=== PATIENT | male | born 1940 | race Caucasian/White ===

== ENCOUNTER → 2016-12-07 | Outpatient (CLI) | payer MEDICARE ==
[~2016-12-07] MED LIST: AMLO2.5T2 PO; APIX5TAB PO; ASPI-496 PO; B COMPLEX PO; CHOLECALCIFEROL PO; CYAN100028 PO; DIGO125T PO; FOLI0.4T2 PO; FOLIC ACID PO; FURO-92 PO; GUAI1TBM PO; LISI1TAB7 PO; MELA1TAB6 PO; METO50TA4 PO; MULT-658 PO; OM-31CAP4 PO; POTA10PI2 PO; POTASSIUM PO; SPIR25TA3 PO; TRAM50TA2 PO
== END | disposition home or self-care (01) ==
LOC: ROC 13:06
PROVIDERS: ATTEND Radiology Radiation Oncology
DX: C79.31 Secondary malignant neoplasm of brain (principal); C34.90 Malignant neoplasm of unspecified part of unspecified bronchus or lung
CPT/HCPCS: G0463

== ENCOUNTER → 2016-12-15 | Outpatient (CLI) | payer MEDICARE | END | disposition home or self-care (01) | LOC: PETCFH 08:20 | PROVIDERS: ATTEND Specialist | DX: C34.11 Malignant neoplasm of upper lobe, right bronchus or lung (principal); C79.51 Secondary malignant neoplasm of bone; R91.1 Solitary pulmonary nodule; J90 Pleural effusion, not elsewhere classified; K40.90 Unilateral inguinal hernia, without obstruction or gangrene, not specified as recurrent | CPT/HCPCS: 78815; A9552 ==

== ENCOUNTER → 2016-12-30 | Outpatient (CLI) | payer MEDICARE ==
[~2016-12-30] MED LIST changes: +GADOBUTROL 10 MMOL/10 ML PFS ONE
== END | disposition home or self-care (01) ==
LOC: CFH 07:33
PROVIDERS: ATTEND Radiology Radiation Oncology
DX: C34.11 Malignant neoplasm of upper lobe, right bronchus or lung (principal); C79.31 Secondary malignant neoplasm of brain; M51.24 Other intervertebral disc displacement, thoracic region; I10 Essential (primary) hypertension
CPT/HCPCS: 72157; 82565; A9585

== ENCOUNTER → 2017-04-06 | Outpatient (CLI) | payer MEDICARE ==
[~2017-04-06] MED LIST changes: -GADOBUTROL 10 MMOL/10 ML PFS ONE; +GADOBUTROL 10 MMOL/10 ML VIAL ONE; -GUAI1TBM PO; +GUAI1TBM11 PO; +OMNIPAQUE 350 MG/ML, 100ML BOTTLE ONE
== END | disposition home or self-care (01) ==
LOC: CFH 09:29
PROVIDERS: ATTEND Specialist
DX: C34.11 Malignant neoplasm of upper lobe, right bronchus or lung (principal); C79.31 Secondary malignant neoplasm of brain; C77.1 Secondary and unspecified malignant neoplasm of intrathoracic lymph nodes; N62 Hypertrophy of breast; I70.0 Atherosclerosis of aorta; M47.897 Other spondylosis, lumbosacral region; Z79.01 Long term (current) use of anticoagulants
CPT/HCPCS: 70553; 71260; 74160; A9585; Q9967

== ENCOUNTER → 2017-04-19 | Outpatient (CLI) | payer MEDICARE, OTHER ==
[~2017-04-19] MED LIST changes: +CALCIUM PO; -GADOBUTROL 10 MMOL/10 ML VIAL ONE; +L.AC1CAP6 PO; -OMNIPAQUE 350 MG/ML, 100ML BOTTLE ONE
== END | disposition home or self-care (01) ==
LOC: ROC 13:23
PROVIDERS: ATTEND Radiology Radiation Oncology
DX: C34.90 Malignant neoplasm of unspecified part of unspecified bronchus or lung (principal); C79.31 Secondary malignant neoplasm of brain; Z79.899 Other long term (current) drug therapy
CPT/HCPCS: G0463

== ENCOUNTER 2017-04-20 08:27 | Day surgery (SDC) | payer MEDICARE ==
[~2017-04-20] VITALS: Ht 182.9 cm; Wt 101.2 kg
[~2017-04-20 08:27] MED LIST changes: -CALCIUM PO; -L.AC1CAP6 PO
[2017-04-20] MEDS ORDERED: L.AC1CAP6 PO (09:19)
[2017-04-20] MEDS ORDERED: CALCIUM PO (09:20)
[2017-04-20] MEDS ORDERED: SODIUM CHLORIDE 0.9% 1,000 ML IV SCH (09:21)
[2017-04-20 09:23] VITALS: BP 116/75
[2017-04-20] MEDS ORDERED: MIDAZOLAM 1 MG/ML, 5ML ONE (09:56)
[2017-04-20] MEDS ORDERED: FLUMAZENIL 0.1 MG/1 ML, 5ML ONE (09:57)
[2017-04-20] MEDS ORDERED: NALOXONE 1 MG/ML, 2ML ONE (09:57)
[2017-04-20] MEDS ORDERED: FENTANYL PF 100 MCG/2ML ONE (09:57)
== END 2017-04-20 14:20 ==
LOC: OUT 08:27
PROVIDERS: ATTEND Specialist
DX: C34.11 Malignant neoplasm of upper lobe, right bronchus or lung (principal); F10.10 Alcohol abuse, uncomplicated; I10 Essential (primary) hypertension; Z98.890 Other specified postprocedural states; Z90.49 Acquired absence of other specified parts of digestive tract
CPT/HCPCS: 32405; 71010; 77012; 88305; 99156; J2250; J3010; J7030; 99157; J2310

== ENCOUNTER → 2017-05-27 | Outpatient (CLI) | payer MEDICARE ==
[~2017-05-27] MED LIST changes: +CALCIUM PO; +L.AC1CAP6 PO
== END | disposition home or self-care (01) ==
LOC: ROC 12:55
PROVIDERS: ATTEND Radiology Radiation Oncology
DX: C34.11 Malignant neoplasm of upper lobe, right bronchus or lung (principal); C79.31 Secondary malignant neoplasm of brain; Z79.899 Other long term (current) drug therapy
CPT/HCPCS: G0463

== ENCOUNTER 2017-07-19 16:41 | Emergency (ER) | payer MEDICARE ==
[~2017-07-19] VITALS: Ht 182.9 cm; Wt 104.0 kg
[2017-07-19 16:51] VITALS: BP 113/57
[2017-07-19] MEDS ORDERED: LIDOCAINE 1%, 20ML INFIL ONE (17:30)
[2017-07-19] MEDS ORDERED: LIDOCAINE 1%, 10ML ONE (17:59)
[2017-07-19] MEDS ORDERED: MICROFIBRILLAR COLLAGEN 1 GM TP ONE (18:57)
[2017-07-19 19:23] LABS: HEMATOCRIT 23.6 % (39.2-51.8); HEMOGLOBIN 8.1 g/dL (13.7-18.0)
== END 2017-07-19 20:02 | disposition home or self-care (01) ==
LOC: ED 19:55
DX: S51.001A Unspecified open wound of right elbow, initial encounter (principal); I10 Essential (primary) hypertension; C34.90 Malignant neoplasm of unspecified part of unspecified bronchus or lung; C79.31 Secondary malignant neoplasm of brain; W18.40XA Slipping, tripping and stumbling without falling, unspecified, initial encounter; Y93.89 Activity, other specified; Y92.89 Other specified places as the place of occurrence of the external cause; Y99.8 Other external cause status
CPT/HCPCS: 36415; 85014; 85018; 97597; 99285

== ENCOUNTER → 2017-08-05 | Outpatient (CLI) | payer MEDICARE ==
[~2017-08-05] MED LIST changes: +OMNIPAQUE 350 MG/ML, 100ML BOTTLE ONE
== END ==
LOC: CFH 11:08
PROVIDERS: ATTEND Specialist
DX: R91.8 Other nonspecific abnormal finding of lung field (principal); C34.11 Malignant neoplasm of upper lobe, right bronchus or lung
CPT/HCPCS: 71260; 74177; Q9967

== ENCOUNTER → 2017-08-24 | Outpatient (CLI) | payer MEDICARE ==
[~2017-08-24] MED LIST changes: -OMNIPAQUE 350 MG/ML, 100ML BOTTLE ONE
== END | disposition home or self-care (01) ==
LOC: CFH 15:53
PROVIDERS: ATTEND Nurse Practitioner
DX: S22.41XA Multiple fractures of ribs, right side, initial encounter for closed fracture (principal); R91.8 Other nonspecific abnormal finding of lung field; X58.XXXA Exposure to other specified factors, initial encounter; Y93.89 Activity, other specified; Y92.89 Other specified places as the place of occurrence of the external cause; Y99.8 Other external cause status; C34.11 Malignant neoplasm of upper lobe, right bronchus or lung; C79.31 Secondary malignant neoplasm of brain; C77.1 Secondary and unspecified malignant neoplasm of intrathoracic lymph nodes; Z79.01 Long term (current) use of anticoagulants

== ENCOUNTER → 2017-10-06 | Outpatient (CLI) | payer MEDICARE, OTHER | LOC: CVU 09:17 | PROVIDERS: ATTEND Internal Medicine Cardiovascular Disease | DX: I08.1 Rheumatic disorders of both mitral and tricuspid valves (principal); I10 Essential (primary) hypertension; I48.91 Unspecified atrial fibrillation; Z85.118 Personal history of other malignant neoplasm of bronchus and lung | CPT/HCPCS: 93306 ==

== ENCOUNTER 2017-10-12 08:36 | Day surgery (SDC) | payer MEDICARE, OTHER ==
[~2017-10-12] VITALS: Ht 182.9 cm; Wt 95.4 kg
[2017-10-12 09:24] VITALS: BP 122/68
[2017-10-12] MEDS ORDERED: MIDAZOLAM 1 MG/ML, 5ML ONE (09:36)
[2017-10-12] MEDS ORDERED: FENTANYL PF 100 MCG/2ML ONE (09:36)
[2017-10-12] MEDS ORDERED: FLUMAZENIL 0.1 MG/1 ML, 5ML ONE (09:36)
[2017-10-12] MEDS ORDERED: NALOXONE 1 MG/ML, 2ML ONE (09:37)
== END 2017-10-12 12:45 ==
LOC: OUT 08:36
PROVIDERS: ATTEND Radiology Radiation Oncology
DX: C49.5 Malignant neoplasm of connective and soft tissue of pelvis (principal); Z79.899 Other long term (current) drug therapy; I10 Essential (primary) hypertension; Z85.118 Personal history of other malignant neoplasm of bronchus and lung; I48.91 Unspecified atrial fibrillation
CPT/HCPCS: 20206; 49411; 77014; 88112; 88305; 88341; 88342; 99156; 99157; C9728; J2250; J3010; G0461; J2310

== ENCOUNTER → 2017-10-20 | Outpatient (CLI) | payer MEDICARE ==
[2017-10-20 12:38] LABS: MICROSCOPIC NOT IND
[2017-10-20 12:40] LABS: CULTURE INDICATED? NO
== END | disposition home or self-care (01) ==
LOC: LAB 11:46
PROVIDERS: ATTEND Radiology Radiation Oncology
DX: N39.0 Urinary tract infection, site not specified (principal); C79.89 Secondary malignant neoplasm of other specified sites
CPT/HCPCS: 81003

== ENCOUNTER → 2017-11-15 | Outpatient (CLI) | payer MEDICARE, OTHER ==
[~2017-11-15] MED LIST changes: +DOCU-131 PO; +LEVO25TA2 PO; +TAMS-11 PO
== END | disposition home or self-care (01) ==
LOC: ROC 12:44
PROVIDERS: ATTEND Radiology Radiation Oncology
DX: C79.89 Secondary malignant neoplasm of other specified sites (principal); C34.90 Malignant neoplasm of unspecified part of unspecified bronchus or lung
CPT/HCPCS: G0463

== ENCOUNTER 2017-11-28 17:06 | Emergency (ER) | payer MEDICARE ==
[~2017-11-28] VITALS: Ht 180.3 cm; Wt 100.0 kg
[2017-11-28 18:07] LABS: MICROSCOPIC NOT IND
[2017-11-28 18:13] LABS: CULTURE INDICATED? NO
[2017-11-28] MEDS ORDERED: [UNRECOGNIZED DRUG - CODE] IV (18:34)
[2017-11-28 19:00] VITALS: BP 107/57
== END 2017-11-28 19:04 | disposition home or self-care (01) ==
LOC: ED 18:55
DX: N40.1 Benign prostatic hyperplasia with lower urinary tract symptoms (principal); R33.8 Other retention of urine; C79.31 Secondary malignant neoplasm of brain; C34.90 Malignant neoplasm of unspecified part of unspecified bronchus or lung; I10 Essential (primary) hypertension; I48.91 Unspecified atrial fibrillation; Z90.49 Acquired absence of other specified parts of digestive tract
CPT/HCPCS: 51702; 81003; 99285

== ENCOUNTER → 2018-01-19 | Outpatient (CLI) | payer MEDICARE, OTHER ==
[~2018-01-19] MED LIST changes: +LIDOCAINE-MPF 1%, 2ML ONE; +OMNIPAQUE 350 MG/ML, 100ML BOTTLE ONE; +[UNRECOGNIZED DRUG - CODE] IV
== END | disposition home or self-care (01) ==
LOC: RAD 06:51
PROVIDERS: ATTEND Radiology Radiation Oncology
DX: C79.89 Secondary malignant neoplasm of other specified sites (principal); C80.1 Malignant (primary) neoplasm, unspecified; R22.1 Localized swelling, mass and lump, neck
CPT/HCPCS: 20206; 70491; 76942; 88305; J3490; Q9967

== ENCOUNTER → 2018-01-25 | Outpatient (CLI) | payer MEDICARE, OTHER ==
[~2018-01-25] MED LIST changes: +CALC1TAB58 PO; +ESSIAC TONIC PO; +FINA5TAB4 PO; -LIDOCAINE-MPF 1%, 2ML ONE; +MAGN400T PO; -OMNIPAQUE 350 MG/ML, 100ML BOTTLE ONE; -SPIR25TA3 PO; +SPIR25TA5 PO; +THIA100T10 PO; +TURM538C PO; +VITA1TAB3 PO; +VITA50DR PO; +VITA80004 PO
== END | disposition home or self-care (01) ==
LOC: ROC 01-13 09:22
PROVIDERS: ATTEND Radiology Radiation Oncology
DX: C79.89 Secondary malignant neoplasm of other specified sites (principal); C34.11 Malignant neoplasm of upper lobe, right bronchus or lung
CPT/HCPCS: 77290; 77334

== ENCOUNTER → 2018-02-03 | Outpatient (CLI) | payer MEDICARE, OTHER ==
[~2018-02-03] MED LIST changes: -CALC1TAB58 PO; -ESSIAC TONIC PO; -FINA5TAB4 PO; -MAGN400T PO; +SPIR25TA3 PO; -SPIR25TA5 PO; -THIA100T10 PO; -TURM538C PO; -VITA1TAB3 PO; -VITA50DR PO; -VITA80004 PO
[2018-02-03 16:31] LABS: ANION GAP 7 mmol/L (5-15); CALCIUM 9.5 mg/dL (8.5-10.1); CHLORIDE 97 mmol/L (98-107)
[2018-02-03 16:42] LABS: CREATININE 0.61 mg/dL (0.7-1.3); T4 (THYROXINE) 8.7 mcg/dL (4.5-12.1)
== END | disposition home or self-care (01) ==
LOC: LAB 15:44
PROVIDERS: ATTEND Physician Assistant
DX: T50.8X4A Poisoning by diagnostic agents, undetermined, initial encounter (principal); I10 Essential (primary) hypertension; E03.9 Hypothyroidism, unspecified; R60.9 Edema, unspecified; R06.02 Shortness of breath; X58.XXXA Exposure to other specified factors, initial encounter; Y93.89 Activity, other specified; Y92.89 Other specified places as the place of occurrence of the external cause; Y99.8 Other external cause status
CPT/HCPCS: 36415; 80048; 83880; 84436; 84443; 84479; 84481

== ENCOUNTER → 2018-02-08 | Outpatient (CLI) | payer MEDICARE, OTHER ==
[~2018-02-08] MED LIST changes: +CALC1TAB58 PO; +ESSIAC TONIC PO; +FINA5TAB4 PO; +MAGN400T PO; +THIA100T10 PO; +TURM538C PO; +VITA1TAB3 PO; +VITA50DR PO; +VITA80004 PO
== END | disposition home or self-care (01) ==
LOC: ROC 12:40
PROVIDERS: ATTEND Radiology Radiation Oncology
DX: C79.89 Secondary malignant neoplasm of other specified sites (principal); C34.11 Malignant neoplasm of upper lobe, right bronchus or lung; C79.31 Secondary malignant neoplasm of brain; C79.2 Secondary malignant neoplasm of skin
CPT/HCPCS: G0463